=== PATIENT | male | born 1975 | race Caucasian/White ===

== ENCOUNTER 2020-04-02 22:20 | Inpatient (IN) | payer OTHER, SELFPAY ==
--- OUTSIDE RECORDS SUMMARY | 2020-04-02 22:22 | XMS REPORT | Summary of Care ---
:1975 Author Organization [facility] Address [address] [place] [address] Care Team Providers Name Role Phone Pcp, Patient Does Not Have A Primary Care Provider +1-000-00 0-0000 Reason for Visit Reason Onset Date Comments Information 04/02/2020 coronavirus Encounter Details Date Type Department Care Team Description 04/02/2020 Nurse Triage ACCESS CENTER Angeles Godinez, RN Information [address] [place] [address] (coronaviru [place]) [place] [phone] Allergies Active Allergy Reactions Severity Noted Date Comments Doxycycline Rash 03/16/2013 Cephalexin Rash 03/16/2013 Simvastatin Rash 03/16/2013 documented as of this encounter (statuses as of 04/02/2020) Medications Medication Sig Dispensed Refills Start Date End Date Status lisinopril Take 1 Tab by 21 Tab 0 03/16/2013 Acti ve (PRINIVIL,ZESTRIL) 10 mg mouth daily. tablet ciprofloxacin (CIPRO) Take 1 Tab by 14 Tab 0 03/16/2013 Active 500 mg tablet mouth 2 (two) times daily. 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 documented as of this encounter Last Filed Vital Signs Not on filedocumented in this encounter Miscellaneous Notes Telephone Encounter - Angeles Godinez RN - 04/02/2020 8:48 PM CSTAdult Triage Assessment Last Clinic Visit: 03/28/2020 - ER for cough, COVID-19 positive. Primary Symptom: Difficulty breathing, cough. Onset / Duration: Diagnosed COVID-19 positive on 03/28/2020 and has progressively worsened throughoutthe week. Location / Description: SOB with exertion, cough that is constant for about 5 minutes. Pain / Severity: 3/10 headache from coughing. Associated Symptoms: Patient states his symptoms have progressively worsened over the past week. RNcan hear patient taking short shallow breaths. Fever / Method: 99.- Forehead scanner Hydration: Drinking well Treatment so far: Taking Tylenol and Advil alternating, Dayquil. Some relief. Effect on ADL's: some LMP: n/a Pre-existing condition / Immunocompromised: Stroke in 2013, HTN Reason for Disposition MODERATE difficulty breathing (e.g., speaks in phrases, SOB even at rest, pulse 100-120) Protocols used: CORONAVIRUS (COVID-19) - DIAGNOSED OR [id number] of patient calls stating that the patient is COVID-19 positive and having worsening shortness of breath and cough over the past week. RN asks to speak to patient and can hear that the patient is taking very focused short shallow breaths. RN reviews Coronavirus (COVID-19) - Diagnosed Or Suspected-Adult Protocol and advises patient go to the ER for evaluation. Patient and verbalize understanding and will take patient in to the [facility] ER. 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 documented in this encounter Plan of Treatment Health Maintenance Due Date Last Done Comments PNEUMOCOCCAL 0-64 YEARS COMBINED SERIES (1 of 3 - 1982 PCV13) Depression Screening 1988 DTaP,Tdap,and Td Vaccines (1 - Tdap) 1995 INFLUENZA VACCINE (#1) 2020 documented as of this encounter Results Not on filedocumented in this encounter Additional Health Concerns Infection Onset Date Last Indicated Resolved Time COVID-19 Confirmed 03/28/2020 03/28/2020 documented as of this encounter Insurance Payer Benefit Plan / Subscriber ID Effective Phone Address T ype Group Dates MEDICAID MEDICAID SSI PENDING 2013-Pre [address] Pending [place] [address] documented as of this encounter
--- OUTSIDE RECORDS SUMMARY | 2020-04-02 22:22 | XMS REPORT | Summary of Care ---
:1975 Author Organization [facility] - [facility] Address [address] [place] [address] Care Team Providers Name Role Phone Pcp, Patient Does Not Have A Primary Care Provider +1-000-00 0-0000 Reason for Visit Reason Comments Viral Syndrome Auth/Cert Status Reason Specialty Diagnoses / Referred By Referred To Procedures Contact Contact Emergency Medicine Diagnoses VIRAL SYNDROME [facility] Emergency Dept [address] [place] [address] Fax: Encounter Details Date Type Department Care Team Description 03/28/2020 Emergency ADC-Emergency Ludmila Reese, Cough (Primary Dx) Department [address] [place] [address] [place] [address] [place] [address] [phone] Allergies Active Allergy Reactions Severity Noted Date Comments Doxycycline Rash 03/16/2013 Cephalexin Rash 03/16/2013 Simvastatin Rash 03/16/2013 documented as of this encounter (statuses as of 03/28/2020) Medications Medication Sig Dispensed Refills Start Date End Date Status lisinopril Take 1 Tab by 21 Tab 0 03/16/2013 Acti ve (PRINIVIL,ZESTRIL) 10 mg mouth daily. tablet ciprofloxacin (CIPRO) Take 1 Tab by 14 Tab 0 03/16/2013 Active 500 mg tablet mouth 2 (two) times daily. 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 documented as of this encounter Last Filed Vital Signs Vital Sign Reading Time Taken Comments Blood Pressure 101/78 03/28/2020 6:36 AM CIGARETTE PACKING MACHINE OPERATOR Pulse 79 03/28/2020 6:36 AM CIGARETTE PACKING MACHINE OPERATOR Temperature 37.3 C (99.1 F) 03/28/2020 6:36 AM CIGARETTE PACKING MACHINE OPERATOR Respiratory Rate 20 03/28/2020 6:36 AM CIGARETTE PACKING MACHINE OPERATOR Oxygen Saturation 98% 03/28/2020 6:36 AM CIGARETTE PACKING MACHINE OPERATOR Inhaled Oxygen Concentration - - Weight 108.9 kg (240 lb) 03/28/2020 6:36 AM CIGARETTE PACKING MACHINE OPERATOR Height 182.9 cm (6') 03/28/2020 6:36 AM CIGARETTE PACKING MACHINE OPERATOR Body Mass Index 32.55 03/28/2020 6:36 AM CIGARETTE PACKING MACHINE OPERATOR documented in this encounter Discharge Instructions Ludmila Haq DO - 03/28/2020DIAGNOSIS 1. Possible Covid NO LIFE-THREATENING FINDINGS ON TODAY'S EXAM. PROCEDURES IN THE ER TODAY: Covid test MEDICATIONS ADMINISTERED IN THE ER TODAY: Decadron YOUR PRESCRIPTIONS AND [id number] MEDICATION RECOMMENDATIONS: You may use over the counter cough and cold medications as needed. SPECIAL CARE INSTRUCTIONS: None FOLLOW-UP RECOMMENDATIONS: RECOMMEND FOLLOW-UP WITH A PRIMARY CARE PROVIDER OR SPECIALIST IN 2-5 DAYS, ESPECIALLY IF NO IMPROVEMENT IN SYMPTOMS. TO FOLLOW-UP WITHIN THE [facility], TRY THESE OPTIONS (CLINIC APPOINTMENTS AVAILABLE ON [id number] BASIS): 1. SCHEDULE AN APPOINTMENT ONLINE AT [email or web address] 2. OR CALL THE [facility] ACCESS CENTER AT OR 3. OR CALL YOUR [facility] PHYSICIAN'S OFFICE DIRECTLY IF YOU ARE ALREADY AN ESTABLISHED [facility] PATIENT. OR, YOU MAY FOLLOW-UP WITH A PROVIDER OF YOUR CHOICE, SUCH : 1. A PHYSICIAN OF YOUR CHOICE 2. [facility] AND [facility], . LOCATIONS IN [facility] 3. [facility], [address] [place] [address]; [phone] RETURN TO ER FOR WORSENING OF SYMPTOMS. AttachmentsThe following attachments cannot be sent through Care Everywhere. Coronavirus Disease 2019, Caring for Yourself and Others (Moroccan)documented in this encounter ED Notes Breanne De La Cruz RN - 03/28/2020 6:33 AM CSTPatient reports loss of smell, taste, chills, cough onset on Saturday. Patient states that he may havebeen exposed to someone that had COVID but is unsure. 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 States someone at work tested positive for covid on Saturday. Using otc meds at home. No fevers. Does not smoke. No h/o dm. Also has loss of taste and smell. Here for eval. Past Medical History/Immunizations: History reviewed. No pertinent past medical history. Tetanus received in last 5 years: No Allergies: Allergies Allergen Reactions Doxycycline Rash Keflex [Cephalexin] Rash Simvastatin Rash Past Social History: Substance & Sexual Activity No substance use or sexual activity history on file. Past Surgical History: History reviewed. No pertinent surgical history. Review of Systems: Review of Systems Constitutional: Positive for fatigue. Negative for chills and fever. Respiratory: Positive for cough. Negative for shortness of breath. Cardiovascular: Negative for chest pain. Gastrointestinal: Negative for abdominal pain and vomiting. Genitourinary: Negative for dysuria. Musculoskeletal: Positive for myalgias. Negative for neck pain and neck stiffness. Neurological: Negative for dizziness. Endocrine: Negative for goiter. Physical Exam: ED Triage Vitals [03/28/20 0636] Weight 108.9 kg (240 lb) Actual or estimated Estimated by patient/family report Height 1.829 m (6') BP 101/78 Pulse 79 Resp 20 Temp 37.3 C (99.1 F) Temp source Oral SpO2 98 % Measured on Room air Physical Exam Vitals signs and nursing note reviewed. Constitutional: Appearance: Normal appearance. He is normal weight. HENT: Head: Normocephalic and atraumatic. Nose: Nose normal. Neck: Musculoskeletal: Neck supple. Cardiovascular: Rate and Rhythm: Normal rate and regular rhythm. Pulses: Normal pulses. Pulmonary: Effort: Pulmonary effort is normal. No respiratory distress. Breath sounds: No stridor. No wheezing or rales. Musculoskeletal: Normal range of motion. Skin: General: Skin is warm. Neurological: General: No focal deficit present. Mental Status: He is alert. Radiology: No results found for this visit on 03/28/20. Lab Results (24h): No results found for this or any previous visit (from the past 24 hour(s)). Orders and Treatments: Orders Placed This Encounter Procedures CORONAVIRUS COVID-19 TESTING Orders Placed This Encounter Medications dexamethasone (DECADRON PHOSPHATE) injection 10 mg ED COURSE patient presents for eval for body aches, fatigue, cough and loss of smell and taste since Saturday -today is Saturday. Positive coworker for covid on Saturday. Does not smoke. No h/o dm. VSS here in the EC. Lungs clear. Ambulatory O2 sat >97%. Will give decdron. Will test for covid. Can use otc meds prn. Ok for discharge home. MDM: Coding Scoring Tools: No data recorded Diagnosis/Impression: ICD-10-CM ICD-9-CM 1. Cough R05 786.2 Disposition/Condition: ED Disposition None Discharge Medications: Patient's Medications START taking these medications No medications on file CONTINUE taking these medications which have NOT CHANGED CIPROFLOXACIN (CIPRO) 500 MG TABLET Take 1 Tab by mouth 2 (two) times daily. LISINOPRIL (PRINIVIL,ZESTRIL) 10 MG TABLET Take 1 Tab by mouth daily. START taking Modified Medications as Prescribed No medications on file STOP taking these medications No medications on file Follow-up: Electronically signed by: Ludmila Reese DO 03/28/2020 7:21 AM RETTE PACKING MACHINE OPERATOR documented in this encounter Miscellaneous Notes ED Nurse Note - Angel Mensah, RN - 03/28/2020 7:39 AM CSTVerbalized understanding of discharge instructions. No signs of distress observed. RR even and unlabored. Encouraged to return to ER if symptoms worsen. RETTE PACKING MACHINE OPERATOR documented in this encounter Plan of Treatment Name Type Priority Associated Diagnoses Order S chedule CORONAVIRUS COVID-19 LAB Routine Cough ONCE fo r 1 Occurrences TESTING starting 2019 until 03/28/2020 Health Maintenance Due Date Last Done Comments Depression Screening 1988 DTaP,Tdap,and Td Vaccines ( - 1995 Tdap) INFLUENZA VACCINE (#1) 2020 PNEUMOCOCCAL 0-64 YEARS COMBINED Aged Out No longer eligible based on SERIES patient's age to complete this topic documented as of this encounter Procedures Procedure Name Priority Date/Time Associated Diagnosis Comme nts NOTICE OF PRIVACY Routine 03/28/2020 6:25 AM CIGARETTE PACKING MACHINE OPERATOR PRACTICES documented in this encounter Results Not on filedocumented in this encounter Visit Diagnoses Diagnosis Cough - Primary documented in this encounter Administered Medications Medication Order MAR Action Action Date Dose Rate Site dexamethasone (DECADRON PHOSPHATE) Given 03/28/2020 7:33 AM CIGARETTE PACKING MACHINE OPERATOR 10 mg injection 10 mg 10 mg, Oral, ONCE, 1 dose, 03/28/20 at 0830, STAT documented in this encounter Additional Health Concerns Infection Onset Date Last Indicated Resolved Time COVID-19 Rule Out 03/28/2020 03/28/2020 documented as of this encounter Insurance Payer Benefit Plan / Subscriber ID Effective Phone Address T ype Group Dates MEDICAID MEDICAID SSI PENDING 2013-Pre [address] Pending [place] [address] [place] [address] documented as of this encounter
--- OUTSIDE RECORDS SUMMARY | 2020-04-02 22:22 | XMS REPORT | Continuity of Care Document ---
:1975 Author Organization [facility] t Address [address] [place] [address] Care Team Providers Name Role Phone Herbert ESPINO, Noam Attending Clinician Unavailable Lurdes Reese DO Attending Clinician Anita ESPINO, M Attending Clinician Unavailable Problems This patient has no known problems. Allergies, Adverse Reactions, Alerts This patient has no known allergies or adverse reactions. Medications This patient has no known medications. Procedures This patient has no known procedures. Encounters Start End Encounter Admission Attending Care Care Encounter Source Date/Time Date/Time Type Type Clinicians Facility Department ID 2020-04-02 2020-04-02 Nurse GATITO Godinez [id number] 00:00:00 00:00:00 Triage Angeles Santacruz [facility] [id number] [id number] 2020-03-28 2020-03-28 Emergency YULIANA Reese [id number] 06:39:00 07:40:00 Ludmila Garcia [id number] [place] [id number] [place] [id number] 2020-03-28 2020-03-28 Telephone Dorothea Howard [id number] 00:00:00 00:00:00 [facility] [id number] Results This patient has no known results.
--- OUTSIDE RECORDS SUMMARY | 2020-04-02 22:22 | XMS REPORT | Summary of Care ---
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 documented as of this encounter Last Filed Vital Signs Not on filedocumented in this encounter Miscellaneous Notes Telephone Encounter - Dorothea Howard RN - 03/28/2020 8:41 PM Komal Coates is a 44 year old male who tested positive for Covid-19. Reviewed the below information with patient who voices understanding. Letter sent via [employer] as well. Patient denies further needs or concerns at this time. Your COVID 19 testing results were positive. At this time, the COVID 19 virus was detected in your sample. If this is the first time you tested positive for COVID 19, we recommend that you remain in self- quarantine along with those in your immediate household until you have been contacted by your [facility]'s health department who will work with you on when you may discontinue self- quarantine. In addition, your company's employee health department may have additional requirements for clearance to work. Please work with your [facility] health department to address those requirements. Please follow the advice you received in your After Visit Summary (AVS), the CDC document on what todo if you are sick with COVID and/or the CDC document on the COVID 19 test you received. Please stayinside and preferably in one room. Avoid close contact with your family and neighbors to prevent further spread. Wear a face mask if in the presence of someone else. Do not share household items such as dishes and toiletries. Be sure to clean your space thoroughly and wash your hands frequently. If you have symptoms, most people feel better within 7-14 days. If your symptoms are worsening and you feel very short of breath and you have difficulty performing basic tasks such as walking to the bathroomor preparing food, we would like you to contact the [facility] at [phone] or toll free to talk with a nurse or, if your symptoms are urgent, go to the nearest Emergency Room. Please wear a face mask and call prior to going to a healthcare facility. The local health department will be contacting you soon to follow up. If you are a [facility] or contract employee or student, please refer to this website for more information [email or web address]. If this is not the first positive result you received, please be advised that it is unclear, at thistime, how long the virus remains detectable in samples. It appears it could be weeks before a samplebecomes negative. The date of your first positive test and your current symptoms will determine whenyou may discontinue quarantine. Please work with the [facility] for instructions. For further guidance on when you can expect to discontinue quarantine and return to work, please visit the CDC website: https://www.cdc.gov/coronavirus/2019-ncov/hcp/dkbaxawmygr-ur-vizp-patients.html. [facility] recommends the symptom-based strategy for those who have symptoms and the time-based strategy for those who do not have symptoms. Repeat testing is not routinely recommended for any reason due to the prolonged detection of the virus in samples without evidence of transmission. General guidance includes release from quarantine when the following conditions are met: ? At least 24 hours have passed since recovery defined as resolution of fever without the use of fever-reducing medications and ? Improvement in symptoms (e.g., cough, shortness of breath); and, ? At least 10 days have passed since symptoms first appeared or the first positive test if symptoms have not developed or worsened since testing, at which point, use date symptoms began. ? Continue to wear a face mask until 14 days have passed since your first test or first symptoms appeared. ? If you experience a worsening of symptoms or recover and then redevelop symptoms, please speak with a provider for further evaluation. Those in your household should remain in quarantine for 14 days to allow time for incubation, or, iftesting positive, should follow the above guidelines for discontinuing quarantine. 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
[2020-04-02] MEDS ORDERED: ALBUTEROL INHALER 60 PUFF/8 GM IH ONE (23:13)
[2020-04-02 23:52] LABS: Absolute Lymphocytes (CBC) 0.7 K/uL (0.7-4.9); Basophils % 0.3 % (0-1.3); Hematocrit 44.3 % (39.6-49.0); Lymphocytes % 11.3 % (15.3-44.8); MPV 9.6 fL (7.6-11.3); Protime INR 1.07; RBC Red Blood Cell Count 5.22 M/uL (4.33-5.43)
[2020-04-03 00:08] LABS: ALT/SGPT 120 U/L (12-78); AST/SGOT 52 U/L (15-37); Alkaline Phosphatase 107 U/L (45-117); BUN Blood Urea Nitrogen 32 mg/dL (7-18); Bicarbonate 20 mmol/L (21-32); Bilirubin Direct 0.1 mg/dL (0-0.2); Bilirubin Total 0.5 mg/dL (0.2-1.0); Glucose Level 121 mg/dL (74-106); Magnesium 1.8 mg/dL (1.8-2.4); NT PRO-BNP 39 pg/mL (<125); Potassium 4.3 mmol/L (3.5-5.1); Protein, Total 7.9 g/dL (6.4-8.2); Sodium Level 136 mmol/L (136-145); Troponin (Emerg Dept Use Only) < 0.02 ng/mL (0.0-0.045)
--- NOTE | 2020-04-03 00:31 | EDPHYS ---
Physician Documentation [facility] Name: Riley Coates Jr Age: 44 yrs Sex: Male : 1975 Arrival Date: 04/02/2020 Time: 22:21 Bed 17 Private MD: Barrett Alvarez T ED Physician Estuardo Zavala HPI: 04/02 22:48 This 44 yrs old Male presents to ER via Unassigned with complaints of mh7 Breathing Difficulty, Shortness Of Breath, covid +. 22:48 The patient has shortness of breath with light activity. Onset: The symptoms/episode mh7 began/occurred 2 day(s) ago. Duration: The symptoms are intermittent, with no pattern. The patient's shortness of breath is aggravated by coughing, light activity, is alleviated by nothing. Associated signs and symptoms: Pertinent positives: non-productive cough, fever, Pertinent negatives: chest pain, productive cough, diaphoresis, dizziness, hemoptysis, loss of consciousness, nausea, numbness in extremities, visual changes, vomiting. Severity of symptoms: At their worst the symptoms were moderate yesterday, in the emergency department the symptoms are unchanged. Patient reports testing positive for Covid 19 5 days ago. He states that he started having cough and SOB two days ago. he has had some intermittent fever. Denies any chest pain, abdominal pain, nausea, vomiting, diarrhea, dizziness, numbness/tingling, or weakness.. Historical: - Allergies: 22:50 Cephalexin; lp1 22:50 Doxycycline; lp1 22:52 Simvastatin; lp1 - Home Meds: 22:50 Metoprolol Tartrate Oral 3 times per day [Active]; Hydralazine Oral 3 times per day lp1 [Active]; - PMHx: 22:50 Hypertension; lp1 - PSHx: 22:50 None; lp1 - Immunization history:: Adult Immunizations up to date. - Social history:: Smoking status: Patient denies any tobacco usage or history of. ROS: 22:48 Eyes: Negative for injury, pain, redness, and discharge, ENT: Negative for injury, mh7 pain, and discharge, Neck: Negative for injury, pain, and swelling, Cardiovascular: Negative for chest pain, palpitations, and edema, Abdomen/GI: Negative for abdominal pain, nausea, vomiting, diarrhea, and constipation, Back: Negative for injury and pain, : Negative for injury, bleeding, discharge, and swelling, MS/Extremity: Negative for injury and deformity, Skin: Negative for injury, rash, and discoloration, Neuro: Negative for headache, weakness, numbness, tingling, and seizure, Psych: Negative for depression, anxiety, suicide ideation, homicidal ideation, and hallucinations, Allergy/Immunology: Negative for hives, rash, and allergies, Endocrine: Negative for neck swelling, polydipsia, polyuria, polyphagia, and marked weight changes, Hematologic/Lymphatic: Negative for swollen nodes, abnormal bleeding, and unusual bruising. Exam: 22:48 Constitutional: This is a well developed, well nourished patient who is awake, alert, mh7 and in no acute distress. Head/Face: Normocephalic, atraumatic. Eyes: Pupils equal round and reactive to light, extra-ocular motions intact. Lids and lashes normal. Conjunctiva and sclera are non-icteric and not injected. Cornea within normal limits. Periorbital areas with no swelling, redness, or edema. Neck: Trachea midline, no thyromegaly or masses palpated, and no cervical lymphadenopathy. Supple, full range of motion without nuchal rigidity, or vertebral point tenderness. No Meningismus. Chest/axilla: Normal chest wall appearance and motion. Nontender with no deformity. No lesions are appreciated. Cardiovascular: Regular rate and rhythm with a normal S1 and S2. No gallops, murmurs, or rubs. Normal PMI, no JVD. No pulse deficits. Respiratory: Lungs have equal breath sounds bilaterally, clear to auscultation and percussion. No rales, rhonchi or wheezes noted. No increased work of breathing, no retractions or nasal flaring. Abdomen/GI: Soft, non-tender, with normal bowel sounds. No distension or tympany. No guarding or rebound. No evidence of tenderness throughout. Back: No spinal tenderness. No costovertebral tenderness. Full range of motion. Skin: Warm, dry with normal turgor. Normal color with no rashes, no lesions, and no evidence of cellulitis. MS/ Extremity: Pulses equal, no cyanosis. Neurovascular intact. Full, normal range of motion. Neuro: Awake and alert, GCS 15, oriented to person, place, time, and situation. Cranial nerves II-XII grossly intact. Motor strength 5/5 in all extremities. Sensory grossly intact. Cerebellar exam normal. Normal gait. Psych: Awake, alert, with orientation to person, place and time. Behavior, mood, and affect are within normal limits. 23:18 ECG was reviewed by the Attending Physician. [facility] Vital Signs: 22:46 BP 101 / 69; Pulse 87; Resp 20; Temp 98.3(O); Pulse Ox 96% on R/A; Weight 108.86 kg lp1 (R); Height 6 ft. 0 in. (182.88 cm); 23:30 BP 102 / 52; Pulse 83; Resp 18; Pulse Ox 95% on R/A; lp1 04/03 00:23 BP 100 / 71; Pulse 75; Resp 19; Pulse Ox 96% on R/A; lp1 01:30 BP 117 / 81; Pulse 76; Resp 21; Pulse Ox 96% on R/A; lp1 04/02 22:46 Body Mass Index 32.55 (108.86 kg, 182.88 cm) [facility] MDM: 04/02 22:[address] [facility] 04/03 00:27 Differential diagnosis: Anemia Anxiety Reaction asthma, Bronchitis CHF exacerbation, [facility] Chronic Obstructive Pulmonary Disease Myocardial Infarction pneumonia, Pneumothorax pulmonary edema, reactive airway disease. Data reviewed: vital signs, nurses notes, lab test result(s), cardiac enzymes, CBC, electrolytes, urinalysis, EKG, radiologic studies, plain films. Data interpreted: Pulse oximetry: on room air is 96 %. Interpretation: normal. Counseling: I had a detailed discussion with the patient and/or guardian regarding: the historical points, exam findings, and any diagnostic results supporting the discharge/admit diagnosis, lab results, radiology results, the need for further work-up and treatment in the hospital. Response to treatment: the patient's symptoms have mildly improved after treatment. 04/02 22:46 Order name: Basic Metabolic Panel; Complete Time: 00:11 [facility] 04/02 22:46 Order name: CBC with Diff; Complete Time: 00:11 [facility] 04/02 22:46 Order name: LFT's; Complete Time: 00:11 [facility] 04/02 22:46 Order name: Magnesium; Complete Time: 00:11 [facility] 04/02 22:46 Order name: NT PRO-BNP; Complete Time: 00:11 [facility] 04/02 22:46 Order name: PT-INR; Complete Time: 00:11 [facility] 04/02 22:46 Order name: Troponin (emerg Dept Use Only); Complete Time: 00:11 [facility] 04/02 22:46 Order name: XRAY Chest (1 view) [facility] 04/02 22:47 Order name: EKG; Complete Time: 22:47 [facility] 04/02 22:55 Order name: Influenza Screen (a \T\ B); Complete Time: 00:27 [facility] 04/02 23:57 Order name: C-Reactive Protein; Complete Time: 00:11 [facility] 04/03 00:27 Order name: Procalcitonin [facility] 04/02 22:47 Order name: Cardiac monitoring; Complete Time: 23:23 [facility] 04/02 22:47 Order name: EKG - Nurse/Tech; Complete Time: 23:23 [facility] 04/02 22:47 Order name: IV Saline Lock; Complete Time: 23:23 [facility] 04/02 22:47 Order name: Labs collected and sent; Complete Time: 23:23 [facility] 04/02 22:47 Order name: O2 Per Protocol; Complete Time: 23:23 [facility] 04/02 22:47 Order name: O2 Sat Monitoring; Complete Time: 23:23 7 EC/14 23:18 Rate is 78 beats/min. Rhythm is regular, Normal Sinus Rhythm. QRS [place] is Normal. [place] mh7 interval is normal. QRS interval is normal. QT interval is normal. No Q waves. T waves are Normal. No ST changes noted. Clinical impression: Normal ECG. Administered Medications: 23:20 Drug: Albuterol HFA Inhaler 2 puffs Route: Inhalation; 1 04/03 00:35 Follow up: Response: No adverse reaction lp1 Disposition: 04/03/20 00:31 Hospitalization ordered by Sivakumar Owusu for Observation. Preliminary diagnosis are COVID 19 Pneumonia, Dyspnea/Hypoxia with Ambulation. - Bed requested for Intensive Care Unit. - Status is Observation. lp1 - Condition is Stable. - Problem is new. - Symptoms have improved. Signatures: Dispatcher [employer] EDMS Minnie Love RN RN [facility] Rosaura Bal RN RN Estuardo Zavala MD MD [facility] Corrections: (The following items were deleted from the chart) 04/02 22:52 22:50 Allergies: unknown antibiotic; lp1 lp1 23:56 23:52 C-REACTIVE PROTEIN+C.LAB.BRZ ordered. EDMS EDMS 04/03 01:32 00:31 Hospitalization Ordered by Sivakumar Owusu MD for Observation. Preliminary cg diagnosis is COVID 19 Pneumonia; Dyspnea/Hypoxia with Ambulation. Bed requested for Telemetry/MedSurg (observation). Status is Observation. Condition is Stable. Problem is new. Symptoms have improved. mh7 02:16 01:32 04/03/2020 00:31 Hospitalization Ordered by Sivakumar Owusu MD for Observation. lp1 Preliminary diagnosis is COVID 19 Pneumonia; Dyspnea/Hypoxia with Ambulation. Bed requested for Intensive Care Unit. Status is Observation. Condition is Stable. Problem is new. Symptoms have improved. cg
--- NOTE | 2020-04-03 00:31 | ER ---
Nurse's Notes [facility] Name: Riley Coates Jr Age: 44 yrs Sex: Male : 1975 Arrival Date: 04/02/2020 Time: 22:21 Bed 17 Private MD: Barrett Alvarez T Diagnosis: COVID 19 Pneumonia;Dyspnea/Hypoxia with Ambulation Presentation: 04/02 22:46 Chief complaint: Patient states: Patient tested COVID positive on Saturday03/28/20; lp1 Reports symptoms that began on 03/25/20; States increasing shortness of breath with minimal exertion and trouble sleeping due to shortness of breath when laying on sides of body; fever of 101 yesterday, taking OTC Tylenol, Advil, DayQuil. Coronavirus screen: Client reports previous positive COVID test result. Date of collection: March 28, 2020. Ebola Screen: No symptoms or risks identified at this time. Initial Sepsis Screen: Does the patient meet any 2 criteria? No. Patient's initial sepsis screen is negative. Does the patient have a suspected source of infection? No. Patient's initial sepsis screen is negative. Risk Assessment: Do you want to hurt yourself or someone else? Patient reports no desire to harm self or others. Onset of symptoms was March 25, 2020. 22:46 Method Of Arrival: Ambulatory lp1 22:46 Acuity: MARIO 3 lp1 Triage Assessment: 23:45 Respiratory: Reports shortness of breath at rest on exertion Airway is patent lp1 Respiratory effort is even, Onset: The symptoms/episode began/occurred gradually, the patient has mild shortness of breath. Historical: - Allergies: 22:50 Cephalexin; lp1 22:50 Doxycycline; lp1 22:52 Simvastatin; lp1 - Home Meds: 22:50 Metoprolol Tartrate Oral 3 times per day [Active]; Hydralazine Oral 3 times per day lp1 [Active]; - PMHx: 22:50 Hypertension; lp1 - PSHx: 22:50 None; lp1 - Immunization history:: Adult Immunizations up to date. - Social history:: Smoking status: Patient denies any tobacco usage or history of. Screenin:52 Abuse screen: Denies threats or abuse. Denies injuries from another. Nutritional lp1 screening: No deficits noted. Tuberculosis screening: No symptoms or risk factors identified. Fall Risk None identified. Assessment: 22:52 General: Appears in no apparent distress. Behavior is appropriate for age. Pain: Denies lp1 pain. Neuro: Level of Consciousness is awake, alert, obeys commands, Oriented to person, place, time, situation. Cardiovascular: Patient's skin is warm and dry. Respiratory: Airway is patent Trachea midline Respiratory effort is even, Respiratory pattern is regular, Breath sounds are diminished bilaterally. GI: No signs and/or symptoms were reported involving the gastrointestinal system. : No signs and/or symptoms were reported regarding the genitourinary system. EENT: No signs and/or symptoms were reported regarding the EENT system. Derm: Skin is intact, Skin is dry, Skin is normal. Musculoskeletal: No deficits noted. 23:00 Cardiovascular: Rhythm is sinus rhythm. lp1 04/03 00:00 Reassessment: Observed patient walking in perdom[place], reports feeling "winded"; O2 noted at lp1 90% while walking; Provider notified. 00:21 Reassessment: Dr. Zavala at bedside to discuss plan of care with patient; Demonstrates lp1 understanding of plan for admission. 00:34 Reassessment: Hospitalist, KELLY Vo, at bedside to discuss care with patient. lp1 01:15 Reassessment: Patient appears in no apparent distress at this time. Patient is alert, lp1 oriented x 3, equal unlabored respirations, skin warm/dry/pink. Patient aware of waiting for room assignment. Vital Signs: 04/02 22:46 BP 101 / 69; Pulse 87; Resp 20; Temp 98.3(O); Pulse Ox 96% on R/A; Weight 108.86 kg lp1 (R); Height 6 ft. 0 in. (182.88 cm); 23:30 BP 102 / 52; Pulse 83; Resp 18; Pulse Ox 95% on R/A; lp1 04/03 00:23 BP 100 / 71; Pulse 75; Resp 19; Pulse Ox 96% on R/A; lp1 01:30 BP 117 / 81; Pulse 76; Resp 21; Pulse Ox 96% on R/A; lp1 04/02 22:46 Body Mass Index 32.55 (108.86 kg, 182.88 cm) lp1 ED Course: 04/02 22:21 Patient arrived in ED. am2 22:22 Barrett Alvarez MD is Private Physician. am2 22:28 Estuardo Zavala MD is Attending Physician. 7 22:30 Minnie Love RN is Primary Nurse. lp1 22:49 Triage completed. lp1 22:49 Arm band placed on. lp1 22:55 Patient has correct armband on for positive identification. satellite project site monitor on. Pulse lp1 ox on. NIBP on. 22:58 XRAY Chest (1 view) In Process Unspecified. EDMS 23:00 Patient placed on droplet and contact precautions with eye protection. lp1 23:15 Initial lab(s) drawn, by me, sent to lab. Flu and/or RSV swab sent to lab. Inserted lp1 saline lock: 20 gauge in right antecubital area, using aseptic technique. Blood collected. 11 00:23 No provider procedures requiring assistance completed. lp1 00:28 Sivakumar Owusu MD is Hospitalizing Provider. mh7 01:41 Patient admitted, IV remains in place. lp1 Administered Medications: 04/02 23:20 Drug: Albuterol HFA Inhaler 2 puffs Route: Inhalation; lp1 04/03 00:35 Follow up: Response: No adverse reaction lp1 Outcome: 00:31 Decision to Hospitalize by Provider. mh7 01:44 Condition: stable lp1 01:44 Instructed on the need for admit. 01:50 Admitted to ICU accompanied by tech, via wheelchair, room 2, with chart, Report called lp1 to KENZIE Bland 02:00 Patient left the ED. 1 Signatures: Dispatcher [employer] EDIN Minnie Love RN RN lp1 Cristal Oliveira am2 Estuardo Zavala MD MD [facility] Corrections: (The following items were deleted from the chart) 04/02 22:52 22:50 Allergies: unknown antibiotic; lp1 lp1 04/03 02:17 02:16 Patient left the ED. lp1 1
[2020-04-03] MEDS ORDERED: ONDANSETRON 4 MG/2 ML VIAL IV PRN (01:47)
[2020-04-03] MEDS ORDERED: NA CHLORIDE 0.9% 1,000 ML IV SCH (01:47)
[2020-04-03] MEDS ORDERED: BENZONATATE 100 MG CAP PO PRN (01:47)
[2020-04-03] MEDS: METHYLPREDNISOLONE 40 MG INJ IV SCH ×2 (02:38→08:55)
[2020-04-03 02:57] VITALS: BMI 31.6
[2020-04-03 04:57] LABS: Absolute Lymphocytes (CBC) 0.6 K/uL (0.7-4.9); Basophils % 0.3 % (0-1.3); Hematocrit 41.9 % (39.6-49.0); MPV 9.4 fL (7.6-11.3); RBC Red Blood Cell Count 4.96 M/uL (4.33-5.43)
[2020-04-03 05:17] LABS: C-Reactive Protein 68.2 mg/L (<3.00); Ferritin 858.1 ng/mL (26-388); Magnesium 1.9 mg/dL (1.8-2.4); Potassium 4.4 mmol/L (3.5-5.1)
--- NOTE | 2020-04-03 05:31 | P.HP ---
Certification for Inpatient Patient admitted to: Observation With expected LOS: <2 Midnights Patient will require the following post-hospital care: None Practitioner: I am a practitioner with admitting privileges, knowledge of patient current condition, hospital course, and medical plan of care. Services: Services provided to patient in accordance with Admission requirements found in Title 42 Section 412.3 of the Code of Federal Regulations <Jim Veronica - Last Filed: 04/03/20 05:26> Patient History Date of Service: 04/03/20 Primary Care Provider: Dr. Alvarez Reason for admission: COVID pneumonia History of Present Illness: 44 year old male with history of chronic kidney disease stage IV, h ypertension presents emergency department for shortness of breath. Patient reports that he has been feeling short of breath since approximately 03/25/2020 in tested positive for [place] virus on 03/28/2020. Since then patient been becoming progressively short of breath with minimal exertion and even at rest. Patient presented to the emergency department for evaluation. Patient's workup in the emergency department was significant for creatinine 2.57, GFR 27, BUN 33 which is close to patient's baseline, elevated CRP at 57.9, and chest x-ray suggesting COVID pneumonia. Room air sats at rest were above 95% but with minimal exertion such dropped to 90%. ED provider wishes to admit patient for observation. When I saw the patient in the emergency department is awake, alert, oriented x3. Patient with mild shortness of breath arrest, will admit under observation. - Past Medical/Surgical History Diabetic: No -: Stroke - 2012 -: Hypertension -: Pneumonia -: CKD stage 4 -: none Psychosocial/ Personal History: Pt lives with his family - Family History Father -: Stroke - Social History Smoking Status: Former smoker Alcohol use: Yes CD- Drugs: No Caffeine use: Yes Place of Residence: Home <GlenysJim - Last Filed: 04/03/20 05:26> Date of Service: 04/03/20 <Sivakumar Owusu - Last Filed: 04/03/20 17:27> Allergies cephalexin Allergy (Verified 02/17/15 00:08) Hives doxycycline Allergy (Verified 02/17/15 00:08) Hives simvastatin Allergy (Verified 02/17/15 00:08) Hives UNKNOWN ANTIB Allergy (Uncoded 11/12/15 03:14) Unknown Review of Systems 10-point ROS is otherwise unremarkable Respiratory: Cough, Dry, Shortness of Breath, SOB with Excertion, Pleuritic Pain <Jim Veronica - Last Filed: 04/03/20 05:26> Physical Examination - Physical Exam General: Alert, In no apparent distress HEENT: Atraumatic, PERRLA, Mucous membr. moist/pink Neck: Supple, 2+ carotid pulse no bruit, No LAD Respiratory: Clear to auscultation bilaterally, Normal air movement Cardiovascular: Regular rate/rhythm, Normal S1 S2 Gastrointestinal: Normal bowel sounds, No tenderness Musculoskeletal: No tenderness Integumentary: No rashes Neurological: Normal gait, Normal speech, Normal strength at 5/5 x4 extr, Normal tone, Normal affect - Studies Laboratory Data (last 24 hrs) 04/02/20 23:15: PT 12.6 H, INR 1.07 04/02/20 23:15: WBC 6.1, Hgb 15.0, Hct 44.3, Plt Count 129 L 04/02/20 23:15: Sodium 136, Potassium 4.3, BUN 32 H, Creatinine 2.74 H, Glucose 121 H, Magnesium 1.8, Total Bilirubin 0.5, AST 52 H, ALT 120 H, Alkaline Phosphatase 107 Microbiology Data (last 24 hrs): 04/02/20 23:15 Nasopharnyx Influenza Type A Antigen Screen - Final 04/02/20 23:15 Nasopharnyx Influenza Type B Antigen Screen - Final <Jim Veronica - Last Filed: 04/03/20 05:26> - Studies Laboratory Data (last 24 hrs) 04/03/20 04:10: WBC 5.3, Hgb 14.2, Hct 41.9, Plt Count 100 L D 04/03/20 04:10: Sodium 137, Potassium 4.4, BUN 33 H, Creatinine 2.57 H, Glucose 112 H, Magnesium 1.9 04/02/20 23:15: PT 12.6 H, INR 1.07 04/02/20 23:15: WBC 6.1, Hgb 15.0, Hct 44.3, Plt Count 129 L 04/02/20 23:15: Sodium 136, Potassium 4.3, BUN 32 H, Creatinine 2.74 H, Glucose 121 H, Magnesium 1.8, Total Bilirubin 0.5, AST 52 H, ALT 120 H, Alkaline Phosphatase 107 Microbiology Data (last 24 hrs): 04/02/20 23:15 Nasopharnyx Influenza Type A Antigen Screen - Final 04/02/20 23:15 Nasopharnyx Influenza Type B Antigen Screen - Final <Sivakumar Owusu - Last Filed: 04/03/20 17:27> Assessment and Plan - Plan Assessment COVID pneumonia Hypertension CKD stage 4 Plan COVID pneumonia: Continue with IV steroids, supplementations. Pulmonology consult in place, daily room air saturations. Respiratory therapy consult in place. DVT prophylaxis heparin 5000 units subcutaneous twice daily. Daily CRP. Hypertension: Obtain and continue home medications CKD stage 4: Appears stable at this time, consult nephrology as necessary. Gentle hydration. Discharge Plan: Home Plan to discharge in: 24 Hours - Advance Directives Does patient have a Living Will: No Does patient have a Durable POA for Healthcare: No - Code Status/Comfort Care Code Status Assessed: Yes (full code) Critical Care: No Time Spent Managing Pts Care (In Minutes): 55 <Jim Veronica - Last Filed: 04/03/20 05:26> - Plan Plan of care discussed with Jim Veronica, and I agree with the management plan as noted above. <Sivakumar Owusu - Last Filed: 04/03/20 17:27>
--- NOTE | 2020-04-03 07:41 | EKG ---
Test Date: 2020-04-02 Test Time: 23:06:15 Reservations Specialist: ANNA MEASUREMENT RESULTS: Intervals: Rate: 78 WI: 136 QRSD: 86 QT: 374 QTc: 426 [place]: P: 30 WI: 136 QRS: 44 T: 23 INTERPRETIVE STATEMENTS: Normal sinus rhythm Normal ECG Compared to ECG 11/12/2015 01:15:33 No significant changes Electronically Signed On 04-03-20 07:40:27 MUSICAL INSTRUMENT MECHANIC by Mehran Douglas
[2020-04-03] MEDS: ASCORBIC ACID 500 MG TABLET PO SCH ×2 (08:55→13:22)
[2020-04-03] MEDS ORDERED: VITAMIN D 1000 UNIT TAB PO SCH (09:00)
[2020-04-03] MEDS ORDERED: ZINC SULFATE 220 MG CAP PO SCH (09:00)
[2020-04-03] MEDS ORDERED: HEPARIN 5000 UNIT/ML 1 ML VIAL SQ SCH (09:00)
--- NOTE | 2020-04-03 11:38 | P.CNS ---
Date of Consult: 04/03/20 Primary Care Provider: Dr. Alvarez Chief Complaint: COVID pneumonia History of Present Illness: Patient is 44 years of age history of chronic renal disease hypertension presents to the emergency department a shortness of breath worse lying a lateral position this tested coal weighed positive on 03/28 he has no other complaints patient is feeling better Allergies cephalexin Allergy (Verified 02/17/15 00:08) Hives doxycycline Allergy (Verified 02/17/15 00:08) Hives simvastatin Allergy (Verified 02/17/15 00:08) Hives UNKNOWN ANTIB Allergy (Uncoded 11/12/15 03:14) Unknown Home Medications: Hydralazine [Apresoline*] 1 tab PO TID 04/03/20 Metoprolol Tartrate [Lopressor*] 1 tab PO TID 04/03/20 - Past Medical/Surgical History Diabetic: No -: Stroke - 2012 -: Hypertension -: Pneumonia -: CKD stage 4 -: none Psychosocial/ Personal History: Pt lives with his family - Family History Father Medical History: Stroke - Social History Smoking Status: Current some day smoker Alcohol use: Yes CD- Drugs: No Caffeine use: Yes Place of Residence: Home Review of Systems 10-point ROS is otherwise unremarkable General: Weakness Respiratory: Shortness of Breath Physical Examination Temp Pulse Resp BP Pulse Ox 97.3 F 74 17 125/84 96 04/03/20 08:00 04/03/20 08:00 04/03/20 08:00 04/03/20 08:00 04/03/20 08:00 General: Alert, Oriented x3 Respiratory: Clear to auscultation bilaterally, Friction rub Cardiovascular: Regular rate/rhythm, Normal S1 S2 Laboratory Data (last 24 hrs) 04/03/20 04:10: WBC 5.3, Hgb 14.2, Hct 41.9, Plt Count 100 L D 04/03/20 04:10: Sodium 137, Potassium 4.4, BUN 33 H, Creatinine 2.57 H, Glucose 112 H, Magnesium 1.9 04/02/20 23:15: PT 12.6 H, INR 1.07 04/02/20 23:15: WBC 6.1, Hgb 15.0, Hct 44.3, Plt Count 129 L 04/02/20 23:15: Sodium 136, Potassium 4.3, BUN 32 H, Creatinine 2.74 H, Glucose 121 H, Magnesium 1.8, Total Bilirubin 0.5, AST 52 H, ALT 120 H, Alkaline Ph osphatase 107 - Problems (1) Pneumonia due to 2019 novel coronavirus Current Visit: Yes Status: Acute Plan: Patient is 44 years of age admitted with pneumonia due to hoyt virus is doing better oxygenation satisfactory still has some shortness of breath critically and turning on his sides patient's CRP is mildly elevated recommend discharge on prednisone is 20 mg twice a day for a week 10 mg twice a day for another week to follow-up with me in 2 weeks low-dose anticoagulation
[2020-04-03 12:12] VITALS: TEMP 97.1
[2020-04-03 12:32] VITALS: O2SAT 96
[2020-04-03 12:40] VITALS: BP 140/92
[2020-04-03] MEDS ORDERED: INFLUENZA VACCINE (for 3y+) 0.5 ML DOSE IMVAC ONE (14:00)
--- NOTE | 2020-04-04 11:24 | RAD REPORT ---
EXAM DESCRIPTION: RAD - Chest Single View - 04/02/2020 10:58 pm CLINICAL HISTORY: 4 years Male, SOB COMPARISON: None FINDINGS: Bilateral interstitial opacities No pleural effusion. No pneumothorax. Cardiomediastinal silhouette is within normal limits. No acute osseous abnormality. IMPRESSION: Positive for pulmonary opacities. Differential diagnosis includes viral infections. Electronically signed by: Eduin San DO 04/02/2020 11:44 PM [employer] Due to temporary technical issues with the PACS/Fluency reporting system, reports are being signed by the in house radiologist without review as a courtesy to ensure prompt reporting. The interpreting r adiologist is fully responsible for the content of the report.
== END 2020-04-03 14:43 | disposition home or self-care (01) | DRG 177 ==
LOC: ER 22:20 → ERHOLD 04-03 00:50 → 3RD-ICU 04-03 01:50 → OBSVTOIN 04-03 08:26 → INTOOBSV 04-03 08:26 → OBSVTOIN 04-03 09:47
PROVIDERS: ADMIT Hospitalist; ATTEND Hospitalist
DX: U07.1 COVID-19 (principal); J12.89 Other viral pneumonia; N18.4 Chronic kidney disease, stage 4 (severe); R09.02 Hypoxemia; I12.9 Hypertensive chronic kidney disease with stage 1 through stage 4 chronic kidney disease, or unspecified chronic kidney disease; Z86.73 Personal history of transient ischemic attack (TIA), and cerebral infarction without residual deficits; Z87.891 Personal history of nicotine dependence
CPT/HCPCS: 36415; 71045; 80048; 80076; 82728; 83735; 83880; 84145; 84484; 85025; 85610; 86140; 87804; 93005; 99285; G0378; J1644; J2920; J7030